=== PATIENT | female | born 1930 | race Caucasian/White ===

== ENCOUNTER 2021-02-19 06:20 | Inpatient (IN) ==
[2021-02-19] MEDS ORDERED: Lidocaine -MPF 2% 2 ML VIAL ONE (07:08)
[2021-02-19] MEDS ORDERED: Lidocaine HCL 4 ML Topical Solution (Laryng-O-Jet Kit Sterile Pak) TP ONE (07:08)
[2021-02-19] MEDS ORDERED: Ondansetron 4 MG/2 ML VIAL ONE (07:08)
[2021-02-19] MEDS ORDERED: *HR* Rocuronium Bromide 50 MG/5 ML VIAL ONE ×2 (07:08→09:59)
[2021-02-19] MEDS ORDERED: *HR* Propofol 200 MG/20 ML VIAL IVP ONE ×4 (07:08→11:47)
[2021-02-19] MEDS ORDERED: *HR* FentaNYL (PF) 100 MCG/2 ML VIAL ONE ×2 (07:08→08:52)
[2021-02-19] MEDS ORDERED: Bupivacaine/EPI 1:200k 0.25% 50 ML VIAL ONE (07:10)
[2021-02-19] MEDS ORDERED: *HR* Remifentanil 1 MG VIAL IVP ONE (07:19)
[2021-02-19] MEDS ORDERED: *HR* Phenylephrine 10 MG/ML VIAL ONE (07:28)
[2021-02-19] MEDS ORDERED: Clindamycin 900 MG/50 ML 900 MG/50 ML IV.SOLN IVPB ONE (07:31)
[2021-02-19] MEDS ORDERED: Scopolamine Patch 1.5 MG PATCH.TD72 TD ONE (07:33)
[2021-02-19] MEDS ORDERED: Acetaminophen IV 1,000 MG/100 ML BAG IVPB ONE (07:33)
[2021-02-19] MEDS ORDERED: *HR* HYDROmorphone 2 MG TABLET PO PRN (07:33)
[2021-02-19] MEDS ORDERED: Famotidine 20 MG/2 ML VIAL IVP ONE (07:33)
[2021-02-19] MEDS ORDERED: *HR* Labetalol 20 MG/4 ML SYRINGE IVP PRN (07:33)
[2021-02-19] MEDS ORDERED: *HR* HYDROmorphone (PF) 1 MG/ML SYRINGE IVP PRN (07:33)
[2021-02-19] MEDS ORDERED: *HR* Vasopressin 20 UNIT/ML VIAL ONE (07:37)
[2021-02-19] MEDS ORDERED: Albumin Human 5% 12.5 GM/250 ML IV.SOLN ONE (07:37)
[2021-02-19] MEDS: Ringers Solution, Lactated 1,000 ML IVC SCH ×4 (07:53→17:19)
[2021-02-19] MEDS ORDERED: *HR* Etomidate 40 MG/20 ML VIAL IVP ONE (08:03)
[2021-02-19 08:17] LABS: Potassium 4.6 mEq/L (3.5-5.1)
[2021-02-19] MEDS ORDERED: EPHEDrine 50 MG/ML VIAL ONE (08:36)
[2021-02-19 09:46] LABS: Bilirubin,Urine Negative (Negative); Blood,Urine Small (Negative); Clarity,Urine Ex.Turbid (Clear); Color,Urine Dark-Orange (Yellow); Glucose,Urine (UA) Normal (Normal); Ketones,Urine Negative (Negative); Leukocyte Esterase,Urine Large (Negative); Nitrite,Urine Negative (Negative); PH,Urine 5.5 pH Units (5.0-8.0); Protein,Urine 200 mg/dL (Neg-Trace); Specific Gravity,Urine 1.009 (1.010-1.025); Urobilinogen,Urine Normal (Normal)
[2021-02-19 10:02] LABS: WBC,Urine TNTC per hpf (0-3)
[2021-02-19 10:05] LABS: Transitional Epi Cells,Urine Present per hpf (None-Few)
[2021-02-19 10:08] LABS: Bacteria,Urine Present per hpf (None-Few)
[2021-02-19 10:16] LABS: Renal Epithelial Cells,Urine Present per hpf (None-Few)
[2021-02-19] MEDS ORDERED: Sugammadex Sodium 200 MG/2 ML VIAL IV ONE (11:28)
[2021-02-19] MEDS ORDERED: *HR* HYDROMORPHONE 2 MG/ML VIAL ONE (12:04)
[2021-02-19] MEDS ORDERED: Ondansetron 4 MG/2 ML VIAL IVP PRN (15:07)
[2021-02-19] MEDS ORDERED: Naloxone 0.4 MG/ML INJ IVP PRN (15:07)
[2021-02-19] MEDS ORDERED: levoFLOXacin 500 MG/100 ML 500 MG/100 ML BAG IVPB SCH (20:00)
[2021-02-20] MEDS ORDERED: *HR* LORazepam 2 MG/ML VIAL IVP PRN (00:22)
[2021-02-20] MEDS ORDERED: Haloperidol Lactate 5 MG/ML VIAL IVP PRN (00:23)
[2021-02-20 05:56] LABS: Basophils % 0.1 %; Eosinophils % 0.1 %; Hematocrit 29.5 % (35.3-44.9); Hemoglobin 9.9 g/dL (11.5-15.4); Immature Granulocytes % 0.3 % (0-4); Lymphocytes # 2.9 K/mcL (0.6-4.6); Lymphocytes % 16.7 %; Mean Corpuscular HGB Conc 33.6 g/dL (31.6-35.5); Mean Corpuscular Hemoglobin 31.3 pg (28.0-33.3); Mean Corpuscular Volume 93.4 fL (83.0-100.0); Mean Platelet Volume 10.3 fL (9.4-12.4); Monocytes # 1.3 K/mcL (0.0-1.3); Monocytes % 7.5 %; Platelet Count 239 K/mcL (140-400); Red Blood Count 3.16 M/mcL (3.82-4.97); Segmented Neutrophils % 75.3 %; White Blood Count 17.3 K/mcL (4.3-11.1)
[2021-02-20 06:12] LABS: Calcium 8.8 mg/dL (8.6-10.3); Potassium 4.8 mEq/L (3.5-5.1)
[2021-02-20] MEDS: Ringers Solution, Lactated 1,000 ML IVC SCH (07:03)
[2021-02-20] MEDS ORDERED: Multivit/Ca/Min/Fe/FA 1 TAB TABLET PO SCH (09:00)
[2021-02-20] MEDS ORDERED: levoFLOXacin 500 MG/100 ML 500 MG/100 ML BAG IVPB SCH (09:00)
[2021-02-20] MEDS: Piperacillin/Tazobactam 3.375 GM in 0.9 % Sodium Chloride Mini Bag 100 ML IVPB SCH ×2 (10:32→20:39)
[2021-02-20] MEDS: Aspirin Enteric Coated 81 MG Tablet PO SCH (11:30)
[2021-02-20] MEDS: *HR* Metoprolol 5 MG/5 ML VIAL IVP SCH ×3 (13:03→23:54)
[2021-02-20] MEDS: *HR* HYDROcodone/Acet 5/325 mg TABLET PO PRN (16:39)
[2021-02-21] MEDS: Ringers Solution, Lactated 1,000 ML IVC SCH (04:04)
[2021-02-21 06:12] LABS: Basophils % 0.2 %; Eosinophils # 0.1 K/mcL (0.0-0.6); Eosinophils % 0.7 %; Hematocrit 28.3 % (35.3-44.9); Hemoglobin 9.2 g/dL (11.5-15.4); Immature Granulocytes % 0.6 % (0-4); Lymphocytes # 1.3 K/mcL (0.6-4.6); Lymphocytes % 10.5 %; Mean Corpuscular HGB Conc 32.5 g/dL (31.6-35.5); Mean Corpuscular Hemoglobin 31.6 pg (28.0-33.3); Mean Corpuscular Volume 97.3 fL (83.0-100.0); Mean Platelet Volume 10.3 fL (9.4-12.4); Monocytes # 0.6 K/mcL (0.0-1.3); Monocytes % 4.6 %; Neutrophils # 10.5 K/mcL (1.6-8.9); Platelet Count 201 K/mcL (140-400); Red Blood Count 2.91 M/mcL (3.82-4.97); Red Cell Distribution Width 12.4 % (11.5-14.5); Segmented Neutrophils % 83.4 %; White Blood Count 12.6 K/mcL (4.3-11.1)
[2021-02-21 06:24] LABS: Calcium 8.3 mg/dL (8.6-10.3); Potassium 4.5 mEq/L (3.5-5.1)
[2021-02-21] MEDS: *HR* Metoprolol 5 MG/5 ML VIAL IVP SCH ×3 (08:26→18:56)
[2021-02-21] MEDS: Piperacillin/Tazobactam 3.375 GM in 0.9 % Sodium Chloride Mini Bag 100 ML IVPB SCH ×2 (08:32→21:48)
[2021-02-21] MEDS: Aspirin Enteric Coated 81 MG Tablet PO SCH (08:32)
[2021-02-21] MEDS: *HR* HYDROcodone/Acet 5/325 mg TABLET PO PRN ×2 (11:55→21:48)
[2021-02-21] MEDS ORDERED: levoFLOXacin 500 MG/100 ML 500 MG/100 ML BAG IVPB SCH (21:00)
[2021-02-22 06:46] VITALS: BP 110/51; PULSE 79; TEMP 98; O2SAT 96
[2021-02-22] MEDS: *HR* Metoprolol 5 MG/5 ML VIAL IVP SCH (07:44)
[2021-02-22] MEDS: Aspirin Enteric Coated 81 MG Tablet PO SCH (07:56)
[2021-02-22] MEDS: Piperacillin/Tazobactam 3.375 GM in 0.9 % Sodium Chloride Mini Bag 100 ML IVPB SCH (10:28)
== END 2021-02-22 11:50 | disposition home or self-care (01) | DRG 742 ==
LOC: SAMDAY 06:20 → 1NENUOBS 13:29
PROVIDERS: ADMIT Obstetrics & Gynecology; ATTEND Obstetrics & Gynecology